=== PATIENT | male | born 1975 | race Caucasian/White ===

== ENCOUNTER 2017-01-24 12:33 | Inpatient (IN) | payer SELFPAY ==
[~2017-01-24] VITALS: Ht 180.3 cm; Wt 115.2 kg
[2017-01-24] VITALS (38 sets, daily range): BP systolic 45–142; BP diastolic 27–102
[~2017-01-24 12:33] MED LIST: ALBU25PO2 MC; AZIT500T5 PO; HYDR-519 PO; IBUP-1008 PO
[2017-01-24] MEDS ORDERED: DEXTROSE 50% WATER 50ML SYRINGE IV ONE ×2 (13:00)
[2017-01-24] MEDS ORDERED: SODIUM CHLORIDE 0.9% 1000ML BAG (SEPSIS BOLUS) IV ONE (13:00)
[2017-01-24 13:29] LABS: PROTHROMBIN TIME 20.5 sec
[2017-01-24 13:33] LABS: AMMONIA < 10 uMol/L (<32); HEMATOCRIT. 35.8 % (42.0-52.0); HEMOGLOBIN. 11.5 g/dL (14.0-18.0); MEAN CORPUSCULAR HEMOGLOBIN 25.9 pg (28.0-32.0); MEAN PLATELET VOLUME 13.8 fl (7.4-10.4); RED BLOOD CELL COUNT 4.43 mill/uL (4.7-6.1); RED CELL DISTRIBUTION WIDTH 26.2 % (11.6-14.6)
[2017-01-24 13:37] LABS: CARBON DIOXIDE 13 mEq/L (21-32); CHLORIDE 89 mEq/L (98-107); ETHANOL BLOOD < 10 mg/dL; TROPONIN I 0.03 ng/mL (0.00-0.04)
[2017-01-24 13:40] LABS: PLATELET 11 x1000/uL (130-400)
[2017-01-24] MEDS ORDERED: PIPERACILLIN/TAZ 3.375G PREMIX 50 ML IV ONE (13:45)
[2017-01-24] MEDS ORDERED: VANCOMYCIN 1 G PREMIX 200 ML IV SCH (13:45)
[2017-01-24] MEDS ORDERED: KCL 10MEQ/50ML PREMIX 50 ML IV ONE (14:15)
[2017-01-24 14:18] LABS: PLATELET ESTIMATE MARKEDLY DECREASED
[2017-01-24] MEDS ORDERED: ETOMIDATE 2MG/ML 10ML VIAL IV ONE (14:28)
[2017-01-24] MEDS ORDERED: VECURONIUM BROMIDE 10 MG/VIAL IV ONE (14:28)
[2017-01-24] MEDS ORDERED: SODIUM CHLORIDE 0.9% 1,000 ML IV SCH (16:12)
[2017-01-24] MEDS ORDERED: LORAZEPAM 2MG/ML CPJ IV PRN (16:15)
[2017-01-24] MEDS ORDERED: ONDANSETRON HCL 4MG/2ML VIAL IV PRN (16:15)
[2017-01-24] MEDS ORDERED: IPRATROPIUM/ALBUTEROL 0.5-3(2.5)MG/3ML NEB INH PRN (16:15)
[2017-01-24 16:23] LABS: CLARITY URINE TURBID (CLEAR); COLOR URINE DARK YELLOW (YELLOW); GLUCOSE URINE 1+ (NEGATIVE); KETONES URINE NEGATIVE (NEGATIVE); LEUKOCYTE ESTERASE URINE TRACE (NEGATIVE); NITRITE URINE NEGATIVE (NEGATIVE); OCCULT BLOOD URINE 3+ (NEGATIVE); PROTEIN URINE 3+ (NEGATIVE); SPECIFIC GRAVITY URINE 1.023 (1.005-1.030)
[2017-01-24] MEDS ORDERED: DEXT 5%/0.9% NACL 1,000 ML IV SCH (16:30)
[2017-01-24 16:39] LABS: *AMPHETAMINES SCREEN URINE NEGATIVE (NEGATIVE); *BARBITURATES SCREEN URINE NEGATIVE (NEGATIVE); *BENZODIAZEPINES SCREEN URINE NEGATIVE (NEGATIVE); *COCAINE SCREEN URINE NEGATIVE (NEGATIVE); CANNABINOID URINE SCREEN NEGATIVE (NEGATIVE); METHADONE URINE SCREEN NEGATIVE (NEGATIVE); OPIATES URINE SCREEN NEGATIVE (NEGATIVE); PHENCYCLIDINE URINE SCREEN NEGATIVE (NEGATIVE)
[2017-01-24 16:42] LABS: BG BASE EXCESS -12.5 mmol/L (-2.0-2.0); BG CARBOXYHEMOGLOBIN 1.5 % (0.5-1.5); BG DEOXYHEMOGLOBIN 7.4 % (0.0-5.0); BG HCO3 ACT 11.6 mmol/L (22.0-26.0); BG METHEMOGLOBIN 0.6 % (0.0-1.5); BG OXYGEN SATURATION 92.4 % (92.0-98.5); BG OXYHEMOGLOBIN 90.5 % (94.0-97.0); BG PCO2 22.6 mmHg (35.0-45.0); BG PO2 74.7 mmHg (75.0-100.0); BG SAMPLE SITE RIGHT RADIAL; BG TOTAL HEMOGLOBIN 11.2 g/dL (12.0-18.0); BG VENT MODE NASAL CANNULA
[2017-01-24] MEDS ORDERED: SODIUM CHLORIDE 0.9% 1000ML BAG (SEPSIS BOLUS) IV NR (17:15)
[2017-01-24] MEDS ORDERED: KCL 20MEQ/100ML PREMIX 100 ML IV NR (18:00)
[2017-01-24] MEDS ORDERED: DEXTROSE 10% WATER 500 ML IV ONE (18:00)
[2017-01-24 18:07] LABS: PHOSPHORUS 6.1 mg/dL (2.5-4.9)
[2017-01-24] MEDS ORDERED: SODIUM BICARBONATE 100 MEQ in SODIUM CHLORIDE 0.9% 1,000 ML IV SCH (19:00)
[2017-01-24] MEDS: INSULIN LISPRO 100 UNITS/ML SUBCUT SCH ×2 (20:00→23:53)
[2017-01-24] MEDS ORDERED: PANTOPRAZOLE SODIUM 40 MG/VIAL IV NR (20:15)
[2017-01-24] MEDS: BLOOD SUGAR DIAGNOSTIC STRIP TEST SCH ×2 (20:17→23:53)
[2017-01-24] MEDS ORDERED: VANCOMYCIN 500 MG PREMIX 100 ML IV SCH (21:00)
[2017-01-24] MEDS ORDERED: INSULIN LISPRO 100 UNITS/ML SUBCUT SCH (21:00)
[2017-01-24] MEDS: PIPERACILLIN/TAZ 3.375G PREMIX 50 ML IV SCH (21:00)
[2017-01-24] MEDS ORDERED: SODIUM CHLORIDE 0.9% IV ONE (22:30)
[2017-01-24] MEDS ORDERED: SODIUM BICARBONATE IV ONE (22:30)
[2017-01-24 22:36] LABS: BG CARBOXYHEMOGLOBIN 1.3 % (0.5-1.5); BG DEOXYHEMOGLOBIN 7.4 % (0.0-5.0); BG FRACTION INSPIRED OXYGEN 36; BG HCO3 ACT 9.7 mmol/L (22.0-26.0); BG METHEMOGLOBIN 0.3 % (0.0-1.5); BG OXYGEN SATURATION 92.5 % (92.0-98.5); BG PCO2 16.4 mmHg (35.0-45.0); BG PH 7.389 (7.350-7.450); BG PO2 71.9 mmHg (75.0-100.0); BG SAMPLE SITE LEFT RADIAL; BG VENT MODE NASAL CANNULA
[2017-01-24 23:50] LABS: BG BASE EXCESS -20.7 mmol/L (-2.0-2.0); BG CARBOXYHEMOGLOBIN 0.9 % (0.5-1.5); BG DEOXYHEMOGLOBIN 5.9 % (0.0-5.0); BG FRACTION INSPIRED OXYGEN 100; BG HCO3 ACT 10.4 mmol/L (22.0-26.0); BG METHEMOGLOBIN 0.4 % (0.0-1.5); BG OXYHEMOGLOBIN 92.8 % (94.0-97.0); BG PCO2 46.7 mmHg (35.0-45.0); BG PH 6.967 (7.350-7.450); BG SAMPLE SITE LEFT RADIAL; BG TIDAL VOLUME(mL) 450 mL; BG TOTAL HEMOGLOBIN 10.6 g/dL (12.0-18.0); BG VENT MODE VENT - A/C; BG VENT RATE 14 set
[2017-01-24] MEDS: DEXTROSE 50% WATER 50ML SYRINGE IV PRN (23:52)
[2017-01-25] VITALS (87 sets, daily range): BP systolic 54–192; BP diastolic 23–99
[2017-01-25] MEDS ORDERED: SODIUM BICARBONATE 8.4% 1 MEQ/ML 50ML SYR IV NR (00:15)
[2017-01-25] MEDS ORDERED: PROPOFOL 10MG/ML 100ML 100 ML IV PRN (00:15)
[2017-01-25] MEDS ORDERED: SODIUM BICARBONATE 8.4% 1 MEQ/ML 50ML SYR IV ONE (00:38)
[2017-01-25] MEDS: PHENYLEPHRINE 40 MG in DEXT 5% WATER 246 ML IV PRN ×4 (00:49→13:12)
[2017-01-25] MEDS ORDERED: SODIUM CHLORIDE 0.9% IV SCH ×2 (03:30→04:15)
[2017-01-25] MEDS ORDERED: SODIUM BICARBONATE IV SCH ×2 (03:30→04:15)
[2017-01-25] MEDS ORDERED: SODIUM BICARBONATE 100 MEQ in SODIUM CHLORIDE 0.9% 1,000 ML IV SCH (03:45)
[2017-01-25] MEDS: INSULIN LISPRO 100 UNITS/ML SUBCUT SCH ×4 (04:00→16:00)
[2017-01-25] MEDS: BLOOD SUGAR DIAGNOSTIC STRIP TEST SCH ×4 (04:07→16:45)
[2017-01-25] MEDS: DEXTROSE 50% WATER 50ML SYRINGE IV PRN ×6 (04:16→12:21)
[2017-01-25 05:25] LABS: HEMATOCRIT. 31.9 % (42.0-52.0); HEMOGLOBIN. 9.5 g/dL (14.0-18.0); MEAN CORPUSCULAR HEMOGLOBIN 26.3 pg (28.0-32.0); MEAN CORPUSCULAR VOLUME 88.7 fL (80.0-94.0); MEAN PLATELET VOLUME 8.8 fl (7.4-10.4)
[2017-01-25 05:49] LABS: CHLORIDE 95 mEq/L (98-107)
[2017-01-25] MEDS: PIPERACILLIN/TAZ 3.375G PREMIX 50 ML IV SCH (05:51)
[2017-01-25] MEDS: NOREPINEPHRINE 16 MG in DEXT 5% WATER 234 ML IV PRN ×2 (05:55→14:36)
[2017-01-25 05:56] LABS: CARBON DIOXIDE 11 mEq/L (21-32)
[2017-01-25 06:09] LABS: PLATELET 8 x1000/uL (130-400)
[2017-01-25] MEDS: EPINEPHRINE 1 MG in SODIUM CHLORIDE 0.9% 249 ML IV PRN ×4 (07:32→13:45)
[2017-01-25 07:54] LABS: BG CARBOXYHEMOGLOBIN 0.5 % (0.5-1.5); BG DEOXYHEMOGLOBIN 4.7 % (0.0-5.0); BG FRACTION INSPIRED OXYGEN 100; BG HCO3 ACT 8.1 mmol/L (22.0-26.0); BG METHEMOGLOBIN 0.3 % (0.0-1.5); BG OXYGEN SATURATION 95.3 % (92.0-98.5); BG OXYHEMOGLOBIN 94.5 % (94.0-97.0); BG PCO2 44.2 mmHg (35.0-45.0); BG PH 6.883 (7.350-7.450); BG PO2 111.9 mmHg (75.0-100.0); BG SAMPLE SITE RIGHT BRACHIAL; BG TIDAL VOLUME(mL) 450 mL; BG TOTAL HEMOGLOBIN 9.6 g/dL (12.0-18.0); BG VENT MODE VENT - A/C; BG VENT RATE 14 set
[2017-01-25 07:57] LABS: INR 2.3; PROTHROMBIN TIME 23.7 sec
[2017-01-25] MEDS ORDERED: DEXT 10% WATER 1,000 ML IV SCH (08:15)
[2017-01-25 08:56] LABS: AMMONIA 33 uMol/L (<32)
[2017-01-25] MEDS ORDERED: PANTOPRAZOLE SODIUM 40 MG/VIAL IV SCH (09:00)
[2017-01-25] MEDS ORDERED: MEROPENEM 1,000 MG in SODIUM CHLORIDE 0.9% 100 ML IV SCH (10:00)
[2017-01-25] MEDS ORDERED: FOLIC ACID 1 MG, THIAMINE HCL 100 MG, MVI, ADULT NO.1 10 ML in DEXTROSE 5% WATER 1,000 ML IV ONE ×4 (10:00)
[2017-01-25 10:18] LABS: PHOSPHORUS 13.3 mg/dL (2.5-4.9)
[2017-01-25] MEDS ORDERED: DILTIAZEM HCL 5MG/ML 5ML VIAL IV ONE (10:30)
[2017-01-25 10:46] LABS: NUCLEATED RED BLOOD CELLS 1 /100 WBC
[2017-01-25 10:47] LABS: PLATELET ESTIMATE MARKEDLY DECREASED
[2017-01-25] MEDS ORDERED: DILTIAZEM HCL 125 MG in DEXT 5% WATER 100 ML IV SCH (11:00)
[2017-01-25] MEDS ORDERED: EPINEPHRINE 2 MG in SODIUM CHLORIDE 0.9% 249 ML IV PRN (14:17)
[2017-01-25] MEDS ORDERED: EPINEPHRINE 2 MG in SODIUM CHLORIDE 0.9% 248 ML IV PRN (15:30)
== END 2017-01-25 20:45 | disposition expired | DRG 720 ==
LOC: ER 12:46 → MICUSO 14:46 → EDBEDREQSVC 14:49 → EDBEDREQ 14:49 → EDBEDREQTM 14:49 → ENRESERV 15:05 → SUPCPDRO 16:06
PROVIDERS: ADMIT Internal Medicine Nephrology; ATTEND Internal Medicine Nephrology
PROC: 0BH17EZ Insertion of Endotracheal Airway into Trachea, Via Natural or Artificial Opening (ICD-10-PCS; principal; 2017-01-24)
PROC: 30233R1 Transfusion of Nonautologous Platelets into Peripheral Vein, Percutaneous Approach (ICD-10-PCS; 2017-01-24)
DX: A40.9 Streptococcal sepsis, unspecified (principal); J96.00 Acute respiratory failure, unspecified whether with hypoxia or hypercapnia; K76.7 Hepatorenal syndrome; N17.0 Acute kidney failure with tubular necrosis; I46.9 Cardiac arrest, cause unspecified; G93.41 Metabolic encephalopathy; E43 Unspecified severe protein-calorie malnutrition; D68.9 Coagulation defect, unspecified; K76.6 Portal hypertension; R65.21 Severe sepsis with septic shock; I11.9 Hypertensive heart disease without heart failure; D69.6 Thrombocytopenia, unspecified; E87.1 Hypo-osmolality and hyponatremia; D64.9 Anemia, unspecified; E16.2 Hypoglycemia, unspecified; K80.20 Calculus of gallbladder without cholecystitis without obstruction; E87.6 Hypokalemia; N39.0 Urinary tract infection, site not specified; J32.4 Chronic pansinusitis; K70.9 Alcoholic liver disease, unspecified; E80.6 Other disorders of bilirubin metabolism; R74.0 Nonspecific elevation of levels of transaminase and lactic acid dehydrogenase [LDH]; Z66 Do not resuscitate; J01.90 Acute sinusitis, unspecified; R91.1 Solitary pulmonary nodule; F10.10 Alcohol abuse, uncomplicated; Z68.35 Body mass index [BMI] 35.0-35.9, adult
CPT/HCPCS: 31500; 36415; 36556; 36600; 51702; 70450; 71010; 74176; 80048; 80053; 80305; 81001; 82140; 82375; 82550; 82805; 82962; 83605; 83615; 83690; 83735; 83880; 84100; 84478; 84484; 85025; 85610; 86850; 86900; 86945; 87040; 87077; 87086; 87186; 93005; 93306; 94002; 94003; 94664; 96361; 96365; 96367; 96375; 99291; C9113; G0482; J0171; J2185; J2370; J2543; J3370; J3411; J3480; J3490; J7030; J7040; J7042; J7050; J7060; J7070; J7620; P9034; A4315